=== PATIENT | male | born 1930 | race Caucasian/White ===

== ENCOUNTER 2017-01-13 11:06 | Inpatient (IN) | payer MEDICARE, OTHER ==
[~2017-01-13] VITALS: Ht 175.3 cm; Wt 75.0 kg
[2017-01-13] MEDS ORDERED: LOVENOX 6060 MG/0.6 SC (11:19)
[2017-01-13] MEDS ORDERED: KLOR-CON M2020 MEQ PO (11:20)
[2017-01-13] MEDS ORDERED: PREDNISONE10 MG PO (11:20)
[2017-01-13] MEDS ORDERED: FE TABS325 MG PO (11:21)
[2017-01-13] MEDS ORDERED: TAMSULOSIN HCL0.4 MG PO (11:22)
[2017-01-13] MEDS ORDERED: PANTOPRAZOLE SO40 MG PO (11:22)
[2017-01-13] MEDS ORDERED: FLUDROCORTISON0.1 MG PO (11:23)
[2017-01-13] MEDS ORDERED: MAG-OX 400400 MG PO (11:23)
[2017-01-13] MEDS ORDERED: B-COMPLEX-C PO (11:24)
[2017-01-13] MEDS ORDERED: FINASTERIDE5 MG PO (11:24)
[2017-01-13] MEDS ORDERED: SERTRALINE HCL50 MG PO (11:25)
[2017-01-13] MEDS ORDERED: ALLOPURINOL300 MG PO (11:25)
[2017-01-13] MEDS ORDERED: CEPHALEXIN500 MG PO (11:26)
[2017-01-13 11:48] LABS: HEMATOCRIT 25.7 % (39.0-50.0); HEMOGLOBIN 7.3 g/dl (14.0-18.0); MEAN CELL VOLUME 102.4 fL CALC (80.0-100.0); MEAN CORPUSCULAR HGB 29.1 pG CALC (26.0-32.0); MEAN CORPUSCULAR HGB CONC 28.4 g/L CALC (32.0-36.0); PLATELET COUNT 266 thou/uL (130-400); RED BLOOD COUNT 2.51 mill/uL (4.70-6.10); RED CELL DISTRI WIDTH 19.6 % (11.5-15.5)
[2017-01-13 12:23] LABS: ALBUMIN 3.7 g/dL (3.2-5.0); ALKALINE PHOSPHATASE 72 u/l (38-126); ANION GAP 21 (6-22 (CALC)); BILIRUBIN, TOTAL 0.7 mg/dL (0.0-1.4); BUN 15 mg/dL (8-23); BUN/CREATININE RATIO 11 (12-20 (CALC)); CALCIUM 9.4 mg/dL (8.4-10.2); CARBON DIOXIDE 18 mmol/l (22-30); CHLORIDE 106 mmol/l (95-108); CREATININE 1.4 mg/dL (0.7-1.3); GFR 48 ML/MIN (>=60 (CALC)); GFR FOR AFR.AMER. 58 ML/MIN (>=60 (CALC)); GLUCOSE 142 mg/dL (82-115); POTASSIUM 5.1 mmol/l (3.5-5.1); SGOT/AST 26 u/l (19-48); SGPT/ALT 27 u/l (11-66); SODIUM 139 mmol/l (137-146); TOTAL PROTEIN 6.8 g/dL (6.3-8.2)
[2017-01-13 12:35] LABS: MYOGLOBIN 102 ng/mL (0 - 121)
[2017-01-13 12:36] LABS: IMMATURE GRANULOCYTES 14.4 % (0.0-1.0)
[2017-01-13 12:37] LABS: BAND 6 % (0-8); HYPOCHROMIA MODERATE; MANUAL DIFFERENTIAL YES
[2017-01-13 12:38] LABS: ANISOCYTOSIS FEW
[2017-01-13 16:31] VITALS: BP 154/65
[2017-01-13 16:45] VITALS: BP 127/60
[2017-01-13 17:34] VITALS: BP 145/64
[2017-01-13 19:23] VITALS: BP 171/69
[2017-01-13 19:30] VITALS: BP 169/65
[2017-01-13 21:54] LABS: URINE BILIRUBIN - DIPSTICK NEGATIVE (NEGATIVE); URINE BLOOD DIPSTICK NEGATIVE (NEGATIVE); URINE CLARITY CLEAR; URINE COLOR YELLOW; URINE GLUCOSE - DIPSTICK NEGATIVE (NEGATIVE); URINE KETONE NEGATIVE (NEGATIVE); URINE LEUK ESTERASE NEGATIVE (NEGATIVE); URINE NITRITE - DIPSTICK NEGATIVE (Negative); URINE PH 5.5 (4.5-8.0); URINE PROTEIN - DIPSTICK NEGATIVE (NEG-TRACE); URINE UROBILINOGEN - DIPSTICK 0.2 E.U./dL (0.2)
[2017-01-14] VITALS (9 sets, daily range): BP systolic 115–148; BP diastolic 51–74
[2017-01-14 07:47] LABS: HEMATOCRIT 23.4 % (39.0-50.0); HEMOGLOBIN 7.1 g/dl (14.0-18.0); MEAN CELL VOLUME 97.5 fL CALC (80.0-100.0); MEAN CORPUSCULAR HGB 29.6 pG CALC (26.0-32.0); MEAN CORPUSCULAR HGB CONC 30.3 g/L CALC (32.0-36.0); PLATELET COUNT 250 thou/uL (130-400); RED CELL DISTRI WIDTH 18.3 % (11.5-15.5)
[2017-01-14 07:50] LABS: ANION GAP 13 (6-22 (CALC)); BUN 13 mg/dL (8-23); BUN/CREATININE RATIO 14 (12-20 (CALC)); CALCIUM 8.6 mg/dL (8.4-10.2); CARBON DIOXIDE 21 mmol/l (22-30); CHLORIDE 107 mmol/l (95-108); CREATININE 0.9 mg/dL (0.7-1.3); GFR > 60 ML/MIN (>=60 (CALC)); GFR FOR AFR.AMER. > 60 ML/MIN (>=60 (CALC)); GLUCOSE 96 mg/dL (82-115); POTASSIUM 4.5 mmol/l (3.5-5.1); SODIUM 137 mmol/l (137-146)
[2017-01-14 08:17] LABS: IMMATURE GRANULOCYTES 14.1 % (0.0-1.0); MANUAL DIFFERENTIAL YES
[2017-01-14 08:18] LABS: BAND 6 % (0-8)
[2017-01-14 08:19] LABS: ANISOCYTOSIS FEW; HYPOCHROMIA FEW
[2017-01-14 20:55] LABS: HEMATOCRIT 24.6 % (39.0-50.0); HEMOGLOBIN 7.6 g/dl (14.0-18.0); MEAN CELL VOLUME 97.2 fL CALC (80.0-100.0); MEAN CORPUSCULAR HGB CONC 30.9 g/L CALC (32.0-36.0); RED BLOOD COUNT 2.53 mill/uL (4.70-6.10); RED CELL DISTRI WIDTH 18.5 % (11.5-15.5)
[2017-01-15] VITALS (7 sets, daily range): BP systolic 103–124; BP diastolic 44–69
[2017-01-15 05:45] LABS: HEMATOCRIT 24.2 % (39.0-50.0); HEMOGLOBIN 7.5 g/dl (14.0-18.0); MEAN CELL VOLUME 96.8 fL CALC (80.0-100.0); NEUT# 8.96 thou/uL (1.82-7.42); RED BLOOD COUNT 2.5 mill/uL (4.70-6.10); RED CELL DISTRI WIDTH 18.7 % (11.5-15.5)
[2017-01-15 05:50] LABS: IMMATURE GRANULOCYTES 15.4 % (0.0-1.0)
[2017-01-15 06:12] LABS: ANION GAP 13 (6-22 (CALC)); BUN 11 mg/dL (8-23); BUN/CREATININE RATIO 15 (12-20 (CALC)); CALCIUM 8.5 mg/dL (8.4-10.2); CARBON DIOXIDE 22 mmol/l (22-30); CHLORIDE 108 mmol/l (95-108); CREATININE 0.8 mg/dL (0.7-1.3); GFR > 60 ML/MIN (>=60 (CALC)); GFR FOR AFR.AMER. > 60 ML/MIN (>=60 (CALC)); GLUCOSE 92 mg/dL (82-115); POTASSIUM 4.4 mmol/l (3.5-5.1); SODIUM 138 mmol/l (137-146)
[2017-01-16] VITALS (11 sets, daily range): BP systolic 89–118; BP diastolic 44–63
[2017-01-16 06:04] LABS: HEMATOCRIT 20.7 % (39.0-50.0); MEAN CORPUSCULAR HGB 30.1 pG CALC (26.0-32.0); MEAN CORPUSCULAR HGB CONC 30.4 g/L CALC (32.0-36.0); NEUT# 10.6 thou/uL (1.82-7.42); RED BLOOD COUNT 2.09 mill/uL (4.70-6.10); RED CELL DISTRI WIDTH 18.4 % (11.5-15.5)
[2017-01-16 06:14] LABS: HEMOGLOBIN 6.3 g/dl (14.0-18.0); IMMATURE GRANULOCYTES 13.2 % (0.0-1.0)
[2017-01-16 06:22] LABS: ANION GAP 10 (6-22 (CALC)); BUN 9 mg/dL (8-23); BUN/CREATININE RATIO 14 (12-20 (CALC)); CARBON DIOXIDE 23 mmol/l (22-30); CHLORIDE 110 mmol/l (95-108); CREATININE 0.7 mg/dL (0.7-1.3); GFR > 60 ML/MIN (>=60 (CALC)); GFR FOR AFR.AMER. > 60 ML/MIN (>=60 (CALC)); GLUCOSE 91 mg/dL (82-115); MAGNESIUM 1.6 mg/dL (1.6-2.3); POTASSIUM 3.8 mmol/l (3.5-5.1); SODIUM 139 mmol/l (137-146)
[2017-01-17 00:45] VITALS: BP 110/54
[2017-01-17 04:05] VITALS: BP 101/53
[2017-01-17 06:05] LABS: HEMATOCRIT 26.1 % (39.0-50.0); HEMOGLOBIN 8.2 g/dl (14.0-18.0); MEAN CELL VOLUME 92.6 fL CALC (80.0-100.0); MEAN CORPUSCULAR HGB 29.1 pG CALC (26.0-32.0); MEAN CORPUSCULAR HGB CONC 31.4 g/L CALC (32.0-36.0); PLATELET COUNT 175 thou/uL (130-400); RED BLOOD COUNT 2.82 mill/uL (4.70-6.10); RED CELL DISTRI WIDTH 20.6 % (11.5-15.5)
[2017-01-17 06:12] LABS: PROTHROMBIN TIME 10.7 SECONDS (9.0-12.5)
[2017-01-17 06:19] LABS: ANION GAP 10 (6-22 (CALC)); BUN 7 mg/dL (8-23); BUN/CREATININE RATIO 11 (12-20 (CALC)); CALCIUM 7.9 mg/dL (8.4-10.2); CARBON DIOXIDE 22 mmol/l (22-30); CHLORIDE 110 mmol/l (95-108); CREATININE 0.6 mg/dL (0.7-1.3); GFR > 60 ML/MIN (>=60 (CALC)); GFR FOR AFR.AMER. > 60 ML/MIN (>=60 (CALC)); GLUCOSE 88 mg/dL (82-115); MAGNESIUM 1.6 mg/dL (1.6-2.3); POTASSIUM 3.7 mmol/l (3.5-5.1); SODIUM 138 mmol/l (137-146)
[2017-01-17 06:40] LABS: IMMATURE GRANULOCYTES 11.1 % (0.0-1.0)
[2017-01-17 06:42] LABS: BAND 3 % (0-8); MANUAL DIFFERENTIAL YES
[2017-01-17 11:35] VITALS: BP 119/57
[2017-01-17 15:45] VITALS: BP 102/50
[2017-01-17 19:20] VITALS: BP 113/59
[2017-01-17 23:44] VITALS: BP 110/61
[2017-01-18 05:39] VITALS: BP 109/61
[2017-01-18 05:46] LABS: HEMATOCRIT 26.9 % (39.0-50.0); HEMOGLOBIN 8.4 g/dl (14.0-18.0); MEAN CELL VOLUME 92.4 fL CALC (80.0-100.0); MEAN CORPUSCULAR HGB 28.9 pG CALC (26.0-32.0); MEAN CORPUSCULAR HGB CONC 31.2 g/L CALC (32.0-36.0); RED BLOOD COUNT 2.91 mill/uL (4.70-6.10); RED CELL DISTRI WIDTH 19.9 % (11.5-15.5)
[2017-01-18 05:59] LABS: ANION GAP 10 (6-22 (CALC)); BUN 8 mg/dL (8-23); BUN/CREATININE RATIO 13 (12-20 (CALC)); CARBON DIOXIDE 21 mmol/l (22-30); CHLORIDE 112 mmol/l (95-108); CREATININE 0.6 mg/dL (0.7-1.3); GFR > 60 ML/MIN (>=60 (CALC)); GFR FOR AFR.AMER. > 60 ML/MIN (>=60 (CALC)); GLUCOSE 86 mg/dL (82-115); POTASSIUM 3.5 mmol/l (3.5-5.1); SODIUM 139 mmol/l (137-146)
[2017-01-18 08:26] VITALS: BP 116/61
[2017-01-18 11:30] VITALS: BP 110/52
[2017-01-18] MEDS ORDERED: LOVENOX 6060 MG/0.6 SC (13:25)
[2017-01-18 15:15] VITALS: BP 100/50
[2017-01-18 19:00] VITALS: BP 95/47
[2017-01-19 00:32] VITALS: BP 109/54
[2017-01-19 03:22] VITALS: BP 105/61
[2017-01-19 09:21] VITALS: BP 115/59
[2017-01-19 12:05] VITALS: BP 116/63
== END 2017-01-19 14:36 | disposition home health service (06) | DRG 605 ==
LOC: ED 11:06 → ED-I 11:33 → ED 11:33 → ED-I 12:45 → ED 12:56 → MS2 12:57 → ED-I 12:57 → MS2 12:57
PROVIDERS: Emergency Medicine; Internal Medicine; Nurse Practitioner Family; ADMIT Internal Medicine; ATTEND Internal Medicine
PROC: 02HV33Z Insertion of Infusion Device into Superior Vena Cava, Percutaneous Approach (ICD-10-PCS; principal; 2017-01-13)
PROC: 30243N1 Transfusion of Nonautologous Red Blood Cells into Central Vein, Percutaneous Approach (ICD-10-PCS; 2017-01-13)
PROC: 30243N1 Transfusion of Nonautologous Red Blood Cells into Central Vein, Percutaneous Approach (ICD-10-PCS; 2017-01-14)
PROC: 30243N1 Transfusion of Nonautologous Red Blood Cells into Central Vein, Percutaneous Approach (ICD-10-PCS; 2017-01-16)
PROC: 30243N1 Transfusion of Nonautologous Red Blood Cells into Central Vein, Percutaneous Approach (ICD-10-PCS; 2017-01-16)
DX: S40.021A Contusion of right upper arm, initial encounter (principal); D68.32 Hemorrhagic disorder due to extrinsic circulating anticoagulants; F03.90 Unspecified dementia, unspecified severity, without behavioral disturbance, psychotic disturbance, mood disturbance, and anxiety; D50.0 Iron deficiency anemia secondary to blood loss (chronic); D46.9 Myelodysplastic syndrome, unspecified; T45.515A Adverse effect of anticoagulants, initial encounter; Z79.899 Other long term (current) drug therapy; W19.XXXA Unspecified fall, initial encounter; Y92.009 Unspecified place in unspecified non-institutional (private) residence as the place of occurrence of the external cause; Z85.038 Personal history of other malignant neoplasm of large intestine; Z79.01 Long term (current) use of anticoagulants; Z86.718 Personal history of other venous thrombosis and embolism; Z93.3 Colostomy status; Z91.81 History of falling
CPT/HCPCS: P9016